=== PATIENT | female | born 1980 | race Two or more races ===

== ENCOUNTER → 2022-04-30 | Emergency (ER) | payer OTHER ==
[~2022-04-30] VITALS: Ht 167.6 cm; Wt 84.8 kg
== END | disposition home or self-care (01) ==
LOC: ER 04:54
DX: R50.9 Fever, unspecified (principal); R53.81 Other malaise; Z20.822 Contact with and (suspected) exposure to COVID-19

== ENCOUNTER 2023-04-07 05:06 | Emergency (ER) | payer OTHER ==
[~2023-04-07] VITALS: Ht 162.6 cm; Wt 102.5 kg
[2023-04-07] MEDS ORDERED: RINGERS SOLUTION,LACTATED 1,000 ML IV STA (06:34)
[2023-04-07] MEDS ORDERED: ONDANSETRON HCL 2 MG/ML VIAL IV STA (06:34)
[2023-04-07] MEDS ORDERED: BISMUTH SUBSALICYLATE 524 MG/30 ML BLIST.PACK PO STA (06:35)
[2023-04-07] MEDS ORDERED: FAMOTIDINE/PF 20 MG/2 ML VIAL IV PUSH STA (06:35)
[2023-04-07 07:07] LABS: HEMATOCRIT 25.3 % (36.0-45.00); MEAN CORPUSCULAR HGB CONC 30.4 g/dl (32.0-36.0); RED BLOOD COUNT 4.21 M/uL (4.00-6.00); RED CELL DISTRIBUTION WIDTH 18.8 % (11.5-14.5)
[2023-04-07 07:09] LABS: MEAN CELL VOLUME 60.1 fL (80.00-100.00); MEAN CORPUSCULAR HEMOGLOBIN 18.2 pg (27.00-32.0)
[2023-04-07 07:10] LABS: HEMOGLOBIN 7.7 g/dL (12.0-15.00); PLATELET COUNT 114 K/uL (150-450)
[2023-04-07 07:26] LABS: CALCIUM 8.4 mg/dL (8.5-10.1); CREATININE SERUM 0.7 mg/dL (0.55-1.02); GFR 90.9; POTASSIUM 3.53 mEq/L (3.5-5.1)
== END 2023-04-07 13:29 | disposition home or self-care (01) ==
LOC: ER 05:06
DX: K52.9 Noninfective gastroenteritis and colitis, unspecified (principal)